=== PATIENT | male | born 1990 | race African-American/Black ===

== ENCOUNTER 2020-12-20 11:37 | Emergency (ER) | payer SELFPAY ==
[2020-12-20 11:38] VITALS: BP 121/73; PULSE 73; RESP 18; TEMP 36.6; O2SAT 100; BMI 22.0
--- NOTE | 2020-12-20 11:54 | ED.VIS.GEN ---
History of Present Illness Chief Complaint: Complaint Informant: Patient Onset: Days Context: Gradual Onset Timing: Intermittent Narrative: Patient is a 29-year-old male with remote history of STDs presenting for concern of chlamydia. He states his girlfriend notified him that she tested positive for chlamydia. Patient states for the past week or so he had intermittent episodes of dysuria especially in the morning. He has had a couple days where he thought he saw some clear discharge from his penis. He has had some mild tenderness in his groin region. No sores noted. No systemic symptoms. He came in to be treated and evaluated further. He has no other complaints at this time. Past Medical History - Allergies and Home Meds Allergies/Adverse Reactions: Allergies No Known Allergies Allergy (Verified 12/20/20 11:38) Primary Care Physician: Merry Graham MD [STAFF PHYSICIAN] - Nichole Villagran [NON-STAFF] - Past Medical History: None Surgical History: noncontributory Review of Systems General: Denies: Chills, Fever, Sweats Eyes: Denies: Visual changes - bilaterally, Diplopia ENT: Denies: Rhinorrhea, Sore throat Cardiovascular: Denies: Chest pain, Palpitations Respiratory: Denies: Dyspnea, Cough, Dyspnea on exertion Gastrointestinal: Denies: Abdominal pain, Nausea, Vomiting, Diarrhea, Melena, Hematochezia Genitourinary: Reports: Dysuria, - - Penile discharge. Denies: Hematuria, Frequency Musculoskeletal: Denies: Back pain, Extremity Pain Skin: Denies: Rash, Wounds Neurological: Denies: Headache, Weakness, Numbness Physical Exam Vital Signs/Narrative: Vital Signs Temp Pulse Resp BP Pulse Ox 12/20/20 11:38 98 F 73 18 121/73 H 100 Inital Vital Signs reviewed: Yes General: Well nourished, Well developed, No Acute Distress Head: Normocephalic, Atraumatic Eyes: Perrl, EOMI ENT: Moist mucous membranes, No rhinorrhea Neck: Supple, Nontender Cardiovascular: Regular rate, Regular rhythm, No murmurs Respiratory: No distress, CTA bilaterally, Chest nontender Abdomen: Soft, Nontender, Nondistended, Normal bowel sounds. Negative for: Guarding, Rebound tenderness : - - No discharge noted. Normal external genitalia. Mild inguinal lymphadenopathy bilaterally. Back: Nontender, Normal Inspection Extremities: Nontender, No edema Skin: Normal color, No rash Neurological: Alert, Oriented x3, Cranial nerves II-XII grossly intact, Normal Strength, Normal Sensation Psychological: Normal affect, Normal Mood Diagnostic/Tx/Re-eval - Medical Decision Making Patient is evaluated for exposure to chlamydia. He has had some mild urinary symptoms. He does have some mild associated lymphadenopathy but otherwise has a normal exam. He will be treated empirically for gonorrhea and chlamydia. PCR is pending. Urinalysis does show some mild leukoesterase. Urine culture sent as he is a male. Patient is counseled on signs and symptoms requiring return to the emergency room. Patient verbalizes agreement and understand this plan. Patient discharged home in stable and improved condition. ED Disposition - Plan for ED Patient: Disposition: Home or Assisted Living Diagnosis: STD exposure Instructions: ED STI Male Treated Prescriptions: Doxycycline 100 mg PO BID #13 cap Transmission Status: Received by [address] Referrals: Nichole Villagran [NON-STAFF] - Merry Graham MD [STAFF PHYSICIAN] - Additional Instructions: The antibiotic sent to your pharmacy need to be completed. You need to take the full 7 days to adequately treat chlamydia. Notify any partners
[2020-12-20 12:02] LABS: Red Blood Cells-Urine 0 SEEN /hpf (0-5)
[2020-12-20 12:05] LABS: Color, Urine Yellow (Yellow); Glucose, Dipstick Normal (Normal); Ketone-Dipstick Negative (Negative); Leukocyte Esterase-Dipstick 25 /ul (Negative); Nitrite-Dipstick Negative (Negative); Occult Blood-Urine Negative /ul (Negative); Protein-Dipstick Negative (Negative); Specific Gravity, Urine 1.025 (1.002-1.030); Urine Bilirubin Dipstick Negative (Negative); Urine Clarity Clear (Clear); Urine Urobilinogen 4 mg/dl (Normal)
[2020-12-20 12:13] LABS: Bacteria 1+ /hpf (None Seen); Mucous, Urine 3+ /hpf (<or=2+); Squamous Epithelial Cells - UA 0-5 SEEN /hpf (0-5); White Blood Cells 0-5 SEEN /hpf (0-5)
[2020-12-20 13:00] VITALS: BP 108/69; PULSE 57; RESP 16; O2SAT 99
[2020-12-20] MEDS: Ceftriaxone 500 MG Vial IM (13:00)
[2020-12-20] MEDS: Doxycycline 100 MG CAPSULE PO (13:00)
[2020-12-20 14:28] LABS: Chlamydia Trachomatis by PCR Negative (Negative); Neisserai gonorrhoeae by PCR Negative (Negative); Probe Check PASS; Sample Adequacy Control PASS; Specimen Processing Control PASS
== END 2020-12-20 13:04 | disposition home or self-care (01) ==
LOC: ED 12:06
PROVIDERS: Emergency Provider Emergency Medicine
DX: Z20.2 Contact with and (suspected) exposure to infections with a predominantly sexual mode of transmission (principal)
CPT/HCPCS: 81001; 87086; 87491; 87591; 96372; 99283

== ENCOUNTER 2021-05-13 07:32 | Emergency (ER) | payer OTHER, SELFPAY ==
[2021-05-13 07:33] VITALS: BP 161/92; PULSE 102; RESP 18; TEMP 36.6; O2SAT 93; BMI 21.0
--- NOTE | 2021-05-13 07:41 | EDS_ITS ---
HPI History of Present Illness Chief Complaint: Complaint Informant: patient Pain Onset: Weeks (1) Timing: Intermittent (Urethral, when urinating, and bilateral mild groin soreness) Current Severity: Mild Maximum Severity: Moderate Worsened by: Urinating Relieved by: Nothing Appearance Lesion(s): No Genital Edema: No Penile Discharge Genital Discharge Amount: Scant Genital Discharge Color: Clear Genital Discharge Description: Thin Genital Discharge Odor: None Urinary Symptoms Genitourinary Symptoms: Dysuria (No other urinary symptoms) Related History Sexually: Active Unprotected Sex: Yes (About 2 weeks ago) STD: No (None prior) Narrative Narrative: Unprotected intercourse 2 weeks ago, symptoms for about 1 week, concern for STI. PFSH PFSH no medical history Home Medications doxycycline monohydrate 100 mg PO BID #13 cap 12/20/20 [Rx Last Taken Unknown] Allergy/AdvReac Type Severity Reaction Status Date / Time No Known Allergies Allergy Verified 12/20/20 11:38 Social History Smoking Status: Current every day smoker ROS ROS ED Constitutional Constitutional ED: Denies chills or fever(s) Eyes Eyes: Denies change in vision or diplopia ENT ENT ED: Denies rhinorrhea or sore throat Cardiovascular Cardiovascular: Denies chest pain or palpitations Respiratory/Chest Respiratory/Chest: Denies cough or dyspnea Gastrointestinal Gastrointestinal: Denies abdominal pain, diarrhea, nausea or vomiting Genitourinary Genitourinary ED: Denies hematuria Musculoskeletal Musculoskeletal: Denies back pain or neck pain Integumentary Denies abscess or rash Neurologic Neurologic: Denies headache(s), paresthesias or weakness Psychiatric Psychiatric: Denies anxiety or suicidal thoughts EXAM Physical Exam Const Vital Signs: 05/13/21 07:33 Temperature 97.8 F Temperature Source Temporal Pulse Rate 102 H Respiratory Rate 18 Blood Pressure 161/92 H Blood Pressure Mean 115 Pulse Ox 93 Oxygen Delivery Method Room Air Positive well nourished and well developed General Appearance ED: well developed and NAD HEENT Reports moist mucous membranes normocephalic and atraumatic Eyes PERRL and EOMs intact bilaterally Neck full ROM and supple Resp normal respiratory effort GI non-tender and non-distended Auscultation: normoactive bowel sounds Palpation: soft external exam normal Narrative: No rash or lesions. No testicular tenderness. No discharge present from urethral meatus at this time or other abnormalities. Positive bilateral mild tender inguinal lymphadenopathy without buboes or lesions visible. Back/Spine no CVA tenderness General Back: other FROM Extremity normal to inspection General Extremety ED: Negative for edema, pulses abnormal or tenderness General Extremity: Negative for edema or pulses abnormal Neuro oriented x3, CN's II-XII intact bilaterally and no sensory deficits noted Sensorium / Orientation: awake and alert Motor Exam: strength 5/5 throughout Skin no rashes or lesions noted and no wounds MDM MDM MDM Narrative Medical decision making narrative: Urinalysis negative so will only cover for GC and chlamydia, PCR was sent and he was treated with Rocephin and azithromycin. Advised to follow-up if he does not have resolution within 1 week, although LGV is rare, it may have presented here after resolution of lesions given inguinal lymphadenopathy. Lab Data Attestation: I reviewed the patient's lab results. Labs: Laboratory Results - last 24 hr 05/13/21 08:05 Urine Color Yellow Urine Clarity Sl. Cloudy Urine pH 6.0 Ur Specific [place] 1.020 Urine Protein 30 H Urine Glucose (UA) Normal Urine Ketones Negative Urine Occult Blood Negative Urine Nitrite Negative Urine Bilirubin Negative Urine Urobilinogen 1 H Ur Leukocyte Esterase 25 H Urine RBC 0 SEEN Urine WBC 0-5 SEEN Ur Squamous Epith Cells 0-5 SEEN Urine Bacteria 1+ Urine Mucus 0 SEEN Discharge Plan Triage Chief Complaint: Complaint ED Provider: Angel Cary Dx/Rx/DC Orders Clinical Impression: Urethritis Instructions: ED STI Male Treated Prescriptions: No Action doxycycline monohydrate 100 MG capsule 100 mg PO BID Qty: 13 RF: 0 Primary Care Provider: Care Physician,No Primary Referrals: Darien Paez MD [STAFF PHYSICIAN] - 1 Week if not improving Care Physician,No Primary [Primary Care Provider] - Disposition Disposition: Home, Self Care
[2021-05-13 08:00] VITALS: TEMP 36.9; BMI 20.9
[2021-05-13] MEDS: Ceftriaxone 500 MG Vial 250 MG IM (08:06)
[2021-05-13 08:12] LABS: Mucous, Urine 0 SEEN /hpf (<or=2+); Red Blood Cells-Urine 0 SEEN /hpf (0-5)
[2021-05-13 08:16] LABS: Color, Urine Yellow (Yellow); Glucose, Dipstick Normal (Normal); Ketone-Dipstick Negative (Negative); Leukocyte Esterase-Dipstick 25 /ul (Negative); Nitrite-Dipstick Negative (Negative); Occult Blood-Urine Negative /ul (Negative); Protein-Dipstick 30 mg/dl (Negative); Urine Bilirubin Dipstick Negative (Negative); Urine Clarity Sl. Cloudy (Clear); Urine Urobilinogen 1 mg/dl (Normal)
[2021-05-13 08:31] LABS: Bacteria 1+ /hpf (None Seen); Squamous Epithelial Cells - UA 0-5 SEEN /hpf (0-5); White Blood Cells 0-5 SEEN /hpf (0-5)
[2021-05-13] MEDS: Azithromycin 250 MG Tablet 1000 MG PO (08:55)
[2021-05-13 11:24] LABS: Chlamydia Trachomatis by PCR Negative (Negative); Neisserai gonorrhoeae by PCR Negative (Negative); Probe Check PASS; Sample Adequacy Control PASS; Specimen Processing Control PASS
== END 2021-05-13 09:10 | disposition home or self-care (01) ==
PROVIDERS: Emergency Provider Emergency Medicine
DX: N34.2 Other urethritis (principal); F17.200 Nicotine dependence, unspecified, uncomplicated
CPT/HCPCS: 81001; 87491; 87591; 96372; 99283